=== PATIENT | male | born 1985 | race Caucasian/White ===

== ENCOUNTER 2025-02-28 16:45 | Emergency (ER) | payer BC ==
[2025-02-28] MEDS: Acetaminophen/HYDROcodone 325-10 MG Tab PO ONE (19:11)
== END 2025-02-28 19:44 | disposition home or self-care (01) ==
LOC: MW.ED 16:45
DX: S29.8XXA Other specified injuries of thorax, initial encounter (principal); Z79.899 Other long term (current) drug therapy; W10.9XXA Fall (on) (from) unspecified stairs and steps, initial encounter; Y92.019 Unspecified place in single-family (private) house as the place of occurrence of the external cause; Z75.3 Unavailability and inaccessibility of health-care facilities
CPT/HCPCS: 71046; 99283; A9270; 99282